=== PATIENT | male | born 1950 | race Caucasian/White ===

== ENCOUNTER 2021-02-10 17:25 | Outpatient (CLI) | payer OTHER ==
[2021-02-10 15:16] LABS: BASOPHILS % (AUTO) 0.8 %; EOSINOPHILS % (AUTO) 0.8 %; HCT - HEMATOCRIT 34.6 % (42.0-52.0); HGB - HEMOGLOBIN 10.3 g/dL (14.0-18.0); LYMPHOCYTES # (AUTO) 0.8 10^3/uL (1.5-3.5); LYMPHOCYTES % (AUTO) 16.1 %; MEAN CORPUSCULAR HEMOGLOBIN 29.3 pg (27.0-31.0); MEAN CORPUSCULAR HGB CONC 29.8 g/dL (32.0-36.0); MEAN CORPUSCULAR VOLUME 98.6 fL (80.0-94.0); MEAN PLATELET VOLUME 8.8 fL (7.4-11.4); MONOCYTES # (AUTO) 0.6 10^3/uL (0.0-1.0); MONOCYTES % (AUTO) 11.3 %; NEUTROPHILS # (AUTO) 3.5 10^3/uL (1.5-6.6); NEUTROPHILS % (AUTO) 70.8 %; PLT - PLATELET COUNT 408 10^3/uL (130-450); RED BLOOD COUNT 3.51 10^6/uL (4.70-6.10); RED CELL DISTRIBUTION WIDTH 15.6 % (12.0-15.0)
[2021-02-10 15:33] LABS: ALBUMIN/GLOBULIN RATIO 0.8 (1.0-2.2); BILIRUBIN,TOTAL 0.5 mg/dL (0.2-1.0); CALCIUM 9.3 mg/dL (8.5-10.3); CREATININE 0.7 mg/dL (0.6-1.2); POTASSIUM 4.2 mmol/L (3.5-5.0)
--- NOTE | 2021-02-10 18:42 | Ultrasound Report ---
PROCEDURE: Duplex Ext Veins Left INDICATIONS: BILAT LE EDEMA TECHNIQUE: Real-time imaging, as well as color and pulse Doppler interrogation, were performed of the lower extr emity deep veins from the inguinal ligament to the popliteal fossa. COMPARISON: None. FINDINGS: The deep veins are normally compressible, and free of intraluminal thrombus. Color and pu lse Doppler demonstrate normal phasic intraluminal flow. There is normal augmentation response to di stal compression maneuver. IMPRESSION: Negative duplex venous ultrasound for left lower extremity DVT. Reviewed by: Parveen Wilson MD on 02/10/2021 6:41 PM PDT Approved by: Parveen Wilson MD on 02/10/2021 6:41 PM PDT Station ID: [id number]
== END 2021-02-10 17:26 | disposition home or self-care (01) ==
LOC: DI 17:25 → LAB.S 17:25 → DI 17:26
PROVIDERS: ATTEND Emergency Medicine
DX: R60.0 Localized edema (principal)
CPT/HCPCS: 36415; 80053; 83880; 85025; 85379

== ENCOUNTER 2021-03-04 08:21 | Outpatient (CLI) | payer BC, OTHER ==
[2021-03-04 15:14] LABS: ABSOLUTE RETICS # AUTO 0.041 10^6/uL (0.020-0.110); BASOPHILS # (AUTO) 0.1 10^3/uL (0.0-0.1); BASOPHILS % (AUTO) 0.8 %; EOSINOPHILS % (AUTO) 0.5 %; HCT - HEMATOCRIT 33.9 % (42.0-52.0); HGB - HEMOGLOBIN 9.9 g/dL (14.0-18.0); LYMPHOCYTES # (AUTO) 0.8 10^3/uL (1.5-3.5); LYMPHOCYTES % (AUTO) 12.6 %; MEAN CORPUSCULAR HEMOGLOBIN 28.7 pg (27.0-31.0); MEAN CORPUSCULAR HGB CONC 29.2 g/dL (32.0-36.0); MEAN CORPUSCULAR VOLUME 98.3 fL (80.0-94.0); MEAN PLATELET VOLUME 8.7 fL (7.4-11.4); MONOCYTES # (AUTO) 0.6 10^3/uL (0.0-1.0); MONOCYTES % (AUTO) 9.8 %; NEUTROPHILS # (AUTO) 4.6 10^3/uL (1.5-6.6); NEUTROPHILS % (AUTO) 76.1 %; PLT - PLATELET COUNT 479 10^3/uL (130-450); RED BLOOD COUNT 3.45 10^6/uL (4.70-6.10); RED CELL DISTRIBUTION WIDTH 15.6 % (12.0-15.0); RETICULOCYTE COUNT % (AUTO) 1.19 % (0.5-2.3); WHITE BLOOD COUNT 6.1 x10^3/uL (4.8-10.8)
[2021-03-04 15:46] LABS: ALBUMIN 3.1 g/dL (3.2-5.5); ALBUMIN/GLOBULIN RATIO 0.7 (1.0-2.2); BILIRUBIN,TOTAL 0.9 mg/dL (0.2-1.0); CALCIUM 9.6 mg/dL (8.5-10.3); CREATININE 0.7 mg/dL (0.6-1.2); POTASSIUM 4.1 mmol/L (3.5-5.0); TOTAL PROTEIN 7.6 g/dL (6.7-8.2)
[2021-03-04 15:54] LABS: THYROID STIMULATING HORMONE 1.69 uIU/mL (0.34-5.60)
[2021-03-04 16:01] LABS: FERRITIN 1129.5 ng/mL (23.9-336.2)
== END 2021-03-04 08:22 | disposition home or self-care (01) ==
LOC: LAB.S 08:21
PROVIDERS: ATTEND Family Medicine
DX: D64.9 Anemia, unspecified (principal); R35.1 Nocturia; M89.8X5 Other specified disorders of bone, thigh; R74.8 Abnormal levels of other serum enzymes; D72.810 Lymphocytopenia
CPT/HCPCS: 36415; 80053; 82607; 82728; 82746; 82977; 83540; 84153; 84443; 84466; 85025; 85045

== ENCOUNTER 2021-03-06 15:48 | Outpatient (CLI) | payer BC ==
[2021-03-06 19:53] LABS: BASOPHILS % (AUTO) 0.7 %; EOSINOPHILS # (AUTO) 0.1 10^3/uL (0.0-0.7); EOSINOPHILS % (AUTO) 0.8 %; HCT - HEMATOCRIT 34.6 % (42.0-52.0); HGB - HEMOGLOBIN 10.2 g/dL (14.0-18.0); LYMPHOCYTES # (AUTO) 0.8 10^3/uL (1.5-3.5); LYMPHOCYTES % (AUTO) 13.2 %; MEAN CORPUSCULAR HEMOGLOBIN 28.7 pg (27.0-31.0); MEAN CORPUSCULAR HGB CONC 29.5 g/dL (32.0-36.0); MEAN CORPUSCULAR VOLUME 97.2 fL (80.0-94.0); MEAN PLATELET VOLUME 8.6 fL (7.4-11.4); MONOCYTES # (AUTO) 0.4 10^3/uL (0.0-1.0); MONOCYTES % (AUTO) 7.2 %; NEUTROPHILS # (AUTO) 4.7 10^3/uL (1.5-6.6); NEUTROPHILS % (AUTO) 77.6 %; PLT - PLATELET COUNT 539 10^3/uL (130-450); RED BLOOD COUNT 3.56 10^6/uL (4.70-6.10); RED CELL DISTRIBUTION WIDTH 15.5 % (12.0-15.0); WHITE BLOOD COUNT 6.1 x10^3/uL (4.8-10.8)
[2021-03-06 20:12] LABS: ALBUMIN/GLOBULIN RATIO 0.7 (1.0-2.2); BILIRUBIN,TOTAL 0.3 mg/dL (0.2-1.0); CALCIUM 9.4 mg/dL (8.5-10.3); CREATININE 0.7 mg/dL (0.6-1.2); POTASSIUM 4.3 mmol/L (3.5-5.0); TOTAL PROTEIN 7.5 g/dL (6.7-8.2)
== END 2021-03-06 15:49 | disposition home or self-care (01) ==
LOC: LAB.S 15:48
PROVIDERS: ATTEND Internal Medicine
DX: C61 Malignant neoplasm of prostate (principal)
CPT/HCPCS: 36415; 80053; 84153; 84403; 85025

== ENCOUNTER 2021-03-14 10:30 | Outpatient (CLI) | payer BC ==
[2021-03-14] MEDS ORDERED: IOVERSOL 320 100 ML VIAL IVP ONE (11:04)
[2021-03-14] MEDS ORDERED: IOVERSOL 320 50 ML VIAL ONE (11:04)
[2021-03-14] MEDS: IOVERSOL 320 100 ML VIAL IVP ONE (16:05)
[2021-03-14] MEDS: IOVERSOL 320 50 ML VIAL PO ONE (16:05)
--- NOTE | 2021-03-14 16:32 | CT Report ---
PROCEDURE: Abdomen/Pelvis W INDICATIONS: PROSTATE CA CONTRAST: IV CONTRAST: Optiray 320 ml: 100 PO CONTRAST: Optiray 320 ml50 TECHNIQUE: After the administration of contrast, 5 mm thick sections acquired from the diaphragms to the sym physis. 5 mm thick coronal and sagittal reformats were acquired. For radiation dose reduction, the following was used: automated exposure control, adjustment of mA and/or kV according to patient size . COMPARISON: None. FINDINGS: Image quality: Excellent. ABDOMEN: Lung bases: Lung bases are clear. Heart size is normal. Solid organs: Liver and spleen are normal in size and enhancement. Multiple subcentimeter hypodensi ties in the liver are indeterminate but likely cysts. Gallbladder is normal Biliary system is non di lated. Pancreas enhances normally. No adrenal nodules. Kidneys demonstrate normal size and enhance ment, without hydronephrosis. Peritoneum and bowel: Bowel loops demonstrate normal wall thickness and caliber. No free fluid or a ir. Nodes and vessels: No retroperitoneal or mesenteric adenopathy by size criteria. The aorta has ather osclerotic calcifications with no aneurysmal dilatation. The aorta is tortuous. Miscellaneous: No ventral hernias. PELVIS: Genitourinary: Bladder wall thickness is normal. Miscellaneous: No inguinal hernias or adenopathy. Bones: There is subtle sclerosis of the posterior aspect of the L1 vertebral body. The S1 vertebral b tona also has a mixed lytic/sclerotic appearance. There is sclerosis of the inferior aspect of the lef t iliac wing including the acetabulum, superior and inferior ramus, and symphysis pubis. Similar scle rosis of the right inferior ramus is also seen. IMPRESSION: 1. Osseous sclerotic disease consistent with prostate cancer metastasis as above. 2. Hepatic hypodensities are probably cysts but are indeterminate. 3. No other evidence of metastatic disease. Reviewed by: Chad Velázquez on 03/14/2021 4:30 PM PDT Approved by: Chad Velázquez on 03/14/2021 4:30 PM PDT Station ID: [id number]
--- NOTE | 2021-03-14 19:28 | CT Report ---
PROCEDURE: CT chest with contrast INDICATIONS: 70-year-old male with prostate cancer CONTRAST: IV CONTRAST: Optiray 320 ml: 100 PO CONTRAST: Optiray 320 ml50 TECHNIQUE: After the administration of intravenous contrast, 1 mm axial images were acquired from the pulmonary apices through the posterior costophrenic angles. Axial 5 mm soft tissue kernel reconstructions were performed as well as 8 mm axial MIP and coronal and sagittal 5 mm reformations. For radiation dose reduction, the following was used: automated exposure control, adjustment of mA and/or kV according to patient size. COMPARISON: None. FINDINGS: Image quality: Excellent. Lungs and pleura: No acute air space opacities. No pleural effusions or pneumothorax. Central and peripheral airways are patent and normal in caliber. Mediastinum: Heart size is normal. No pericardial effusion. No mediastinal or hilar adenopathy by size criteria. Thoracic aorta and central pulmonary arteries are normal in size. Esophagus is karen l in caliber. No hiatal hernia. Small 1.2 cm left thyroid nodule Bones and chest wall: There is increased sclerosis involving the T10 superior posterior corner of the vertebral body and endplate. Remainder the osseous structures are unremarkable. Abdomen: Visualized upper abdominal solid organs appear normal. Upper abdominal bowel loops are nor mal in caliber. Hepatic cysts noted. IMPRESSION: 1. Osteoblastic T10 sclerotic focus, suspicious for prostatic metastasis. Correlate with bone scan. 2. Small 1.2 cm left thyroid nodule 3. Hepatic hypodensities, likely simple cysts. Reviewed by: Syed Bartholomew MD on 03/14/2021 6:27 PM AKYSABEL Approved by: Syed Bartholomew MD on 03/14/2021 6:27 PM AKDT Station ID: [id number]
== END 2021-03-14 10:31 | disposition home or self-care (01) ==
LOC: DI 10:30
PROVIDERS: ATTEND Internal Medicine
DX: C61 Malignant neoplasm of prostate (principal); C79.51 Secondary malignant neoplasm of bone; E04.1 Nontoxic single thyroid nodule; K76.9 Liver disease, unspecified
CPT/HCPCS: 71260; 74177; Q9967

== ENCOUNTER 2021-03-26 08:45 | Outpatient (CLI) | payer BC ==
[2021-03-26 09:14] LABS: ABSOLUTE RETICS # AUTO 0.072 10^6/uL (0.020-0.110); BASOPHILS # (AUTO) 0.1 10^3/uL (0.0-0.1); BASOPHILS % (AUTO) 1.4 %; EOSINOPHILS # (AUTO) 0.1 10^3/uL (0.0-0.7); EOSINOPHILS % (AUTO) 2.2 %; HCT - HEMATOCRIT 40.8 % (42.0-52.0); HGB - HEMOGLOBIN 12.2 g/dL (14.0-18.0); LYMPHOCYTES # (AUTO) 0.9 10^3/uL (1.5-3.5); LYMPHOCYTES % (AUTO) 23.2 %; MEAN CORPUSCULAR HEMOGLOBIN 29.3 pg (27.0-31.0); MEAN CORPUSCULAR HGB CONC 29.9 g/dL (32.0-36.0); MEAN CORPUSCULAR VOLUME 98.1 fL (80.0-94.0); MEAN PLATELET VOLUME 8.8 fL (7.4-11.4); MONOCYTES # (AUTO) 0.3 10^3/uL (0.0-1.0); NEUTROPHILS # (AUTO) 2.4 10^3/uL (1.5-6.6); NEUTROPHILS % (AUTO) 64.2 %; PLT - PLATELET COUNT 280 10^3/uL (130-450); RED BLOOD COUNT 4.16 10^6/uL (4.70-6.10); RETICULOCYTE COUNT % (AUTO) 1.73 % (0.5-2.3); WHITE BLOOD COUNT 3.7 x10^3/uL (4.8-10.8)
[2021-03-26 09:34] LABS: BILIRUBIN,TOTAL 0.7 mg/dL (0.2-1.0); CALCIUM 10.1 mg/dL (8.5-10.3); CREATININE 0.7 mg/dL (0.6-1.2); POTASSIUM 4.6 mmol/L (3.5-5.0); TOTAL PROTEIN 7.9 g/dL (6.7-8.2)
--- NOTE | 2021-03-26 17:40 | Nuclear Medicine Report ---
PROCEDURE: Bone Whole Body INDICATIONS: PROSTATE CA RADIOPHARMACEUTICAL: 26.3 mCi Tc-99m MDP IV. TECHNIQUE: Delayed whole-body scintigrams were obtained approximately 3-4 hours after intravenous injection of r adiotracer. Anterior and posterior views were acquired from vertex to feet. Additional left and rig ht oblique views of the skull and cervical spine were obtained. COMPARISON: None available. FINDINGS: There are foci of abnormal uptake involving the T6 and T10 vertebral bodies, sacrum, left iliac bone, left ischium and pubis, right anterior superior iliac spine, right ischium and pelvis, co nsistent with osseous metastases. Foci of mildly increased uptake in the anterior aspect of the left third rib and the posterior aspect of the left 12th rib are indeterminate. Foci of low level increased uptake in the lower thoracic spi ne and lumbar spine could represent metastatic disease although degenerative changes could have a sim ilar appearance. If clinically indicated, MRI may be helpful. IMPRESSION: 1. Multiple foci of osseous metastases involving thoracic spine, sacrum, and bony pelvis. 2. Foci of low level increased uptake in the lower thoracic spine and lumbar spine could represent me tastatic disease although degenerative changes could have a similar appearance. If clinically indicat ed, MRI with and without contrast may be helpful. Reviewed by: Gisselle Lopez MD on 03/26/2021 5:38 PM PST Approved by: Gisselle Lopez MD on 03/26/2021 5:38 PM PST Station ID: [id number]
== END 2021-03-26 08:46 | disposition home or self-care (01) ==
LOC: DI 08:45
PROVIDERS: ATTEND Internal Medicine
DX: C61 Malignant neoplasm of prostate (principal); C79.51 Secondary malignant neoplasm of bone; R35.1 Nocturia; M89.8X5 Other specified disorders of bone, thigh; D64.9 Anemia, unspecified; D72.810 Lymphocytopenia; R74.8 Abnormal levels of other serum enzymes
CPT/HCPCS: 36415; 78306; 80053; 82728; 82977; 84153; 84403; 85025; 85045

== ENCOUNTER 2021-06-11 08:16 | Outpatient (CLI) | payer BC ==
[2021-06-11 14:56] LABS: BASOPHILS % (AUTO) 0.8 %; EOSINOPHILS # (AUTO) 0.1 10^3/uL (0.0-0.7); EOSINOPHILS % (AUTO) 2.8 %; HCT - HEMATOCRIT 43.7 % (42.0-52.0); HGB - HEMOGLOBIN 14.1 g/dL (14.0-18.0); LYMPHOCYTES # (AUTO) 0.4 10^3/uL (1.5-3.5); LYMPHOCYTES % (AUTO) 17.1 %; MEAN CORPUSCULAR HEMOGLOBIN 31.8 pg (27.0-31.0); MEAN CORPUSCULAR HGB CONC 32.3 g/dL (32.0-36.0); MEAN CORPUSCULAR VOLUME 98.6 fL (80.0-94.0); MEAN PLATELET VOLUME 9.6 fL (7.4-11.4); MONOCYTES # (AUTO) 0.3 10^3/uL (0.0-1.0); MONOCYTES % (AUTO) 10.7 %; NEUTROPHILS # (AUTO) 1.7 10^3/uL (1.5-6.6); NEUTROPHILS % (AUTO) 68.6 %; PLT - PLATELET COUNT 219 10^3/uL (130-450); RED BLOOD COUNT 4.43 10^6/uL (4.70-6.10); RED CELL DISTRIBUTION WIDTH 14.6 % (12.0-15.0); WHITE BLOOD COUNT 2.5 x10^3/uL (4.8-10.8)
[2021-06-11 15:20] LABS: ALBUMIN 3.8 g/dL (3.2-5.5); ALBUMIN/GLOBULIN RATIO 1.2 (1.0-2.2); BILIRUBIN,TOTAL 0.6 mg/dL (0.2-1.0); CALCIUM 9.6 mg/dL (8.5-10.3); CREATININE 0.7 mg/dL (0.6-1.2); POTASSIUM 4.2 mmol/L (3.5-5.0); TOTAL PROTEIN 7.1 g/dL (6.7-8.2)
== END 2021-06-11 08:17 | disposition home or self-care (01) ==
LOC: LAB.S 08:16
PROVIDERS: ATTEND Internal Medicine
DX: C61 Malignant neoplasm of prostate (principal)
CPT/HCPCS: 36415; 80053; 84153; 85025

== ENCOUNTER 2022-03-25 07:51 | Outpatient (CLI) | payer BC ==
[2022-03-25 08:22] LABS: BASOPHILS % (AUTO) 1.4 %; EOSINOPHILS # (AUTO) 0.1 10^3/uL (0.0-0.7); EOSINOPHILS % (AUTO) 2.3 %; HCT - HEMATOCRIT 43.1 % (42.0-52.0); HGB - HEMOGLOBIN 14.5 g/dL (14.0-18.0); LYMPHOCYTES # (AUTO) 0.5 10^3/uL (1.5-3.5); LYMPHOCYTES % (AUTO) 24.9 %; MEAN CORPUSCULAR HEMOGLOBIN 34.1 pg (27.0-31.0); MEAN CORPUSCULAR HGB CONC 33.6 g/dL (32.0-36.0); MEAN CORPUSCULAR VOLUME 101.4 fL (80.0-94.0); MEAN PLATELET VOLUME 8.9 fL (7.4-11.4); MONOCYTES # (AUTO) 0.2 10^3/uL (0.0-1.0); MONOCYTES % (AUTO) 9.9 %; NEUTROPHILS # (AUTO) 1.3 10^3/uL (1.5-6.6); PLT - PLATELET COUNT 204 10^3/uL (130-450); RED BLOOD COUNT 4.25 10^6/uL (4.70-6.10); WHITE BLOOD COUNT 2.1 x10^3/uL (4.8-10.8)
[2022-03-25 08:36] LABS: PLATELET ESTIMATE, MANUAL NORMAL (130-450,000) (NORMAL); PLATELET MORPHOLOGY NORMAL APPEARANCE (NORMAL); RBC MORPHOLOGY (MULTIPLE) NORMAL APPEARANCE (NORMAL); SLIDE REVIEW? Indicated
[2022-03-25 08:45] LABS: ALBUMIN/GLOBULIN RATIO 1.4 (1.0-2.2); ALKALINE PHOSPHATASE 58 IU/L (42-121); ALT ALANINE AMINOTRANSFERASE 15 IU/L (10-60); AST ASPARTATE AMINOTRANSFERASE 18 IU/L (10-42); BILIRUBIN,TOTAL 0.8 mg/dL (0.2-1.0); BUN - BLOOD UREA NITROGEN 17 mg/dL (6-20); CALCIUM 9.8 mg/dL (8.5-10.3); CARBON DIOXIDE - CO2 28 mmol/L (21-32); CHLORIDE 101 mmol/L (101-111); CHOL/HDL RATIO 3.1 (<5.0); CHOLESTEROL 194 mg/dL; CREATININE 0.8 mg/dL (0.6-1.2); GFR - MDRD 96 (>89); GLUCOSE 103 mg/dL (70-100); HDL CHOLESTEROL 63 mg/dL; POTASSIUM 4.1 mmol/L (3.5-5.0); SODIUM 137 mmol/L (135-145); TOTAL PROTEIN 6.9 g/dL (6.7-8.2); TRIGLYCERIDES 35 mg/dL
[2022-03-25 09:20] LABS: ESTIMATED AVERAGE GLUCOSE 117 mg/dL (70-100); HEMOGLOBIN A1c% 5.7 % (4.27-6.07)
== END 2022-03-25 07:52 | disposition home or self-care (01) ==
LOC: LAB 07:51
PROVIDERS: ATTEND Student in an Organized Health Care Education/Training Program
DX: Z00.00 Encounter for general adult medical examination without abnormal findings (principal); C61 Malignant neoplasm of prostate
CPT/HCPCS: 36415; 80053; 80061; 83036; 83721; 84153; 85025

== ENCOUNTER 2022-06-22 07:35 | Outpatient (CLI) | payer BC ==
[2022-06-22 14:15] LABS: BASOPHILS % (AUTO) 0.9 %; EOSINOPHILS # (AUTO) 0.1 10^3/uL (0.0-0.7); EOSINOPHILS % (AUTO) 2.3 %; HCT - HEMATOCRIT 43.9 % (42.0-52.0); HGB - HEMOGLOBIN 13.9 g/dL (14.0-18.0); LYMPHOCYTES # (AUTO) 0.6 10^3/uL (1.5-3.5); LYMPHOCYTES % (AUTO) 14.3 %; MEAN CORPUSCULAR HEMOGLOBIN 32.9 pg (27.0-31.0); MEAN CORPUSCULAR HGB CONC 31.7 g/dL (32.0-36.0); MEAN CORPUSCULAR VOLUME 103.8 fL (80.0-94.0); MEAN PLATELET VOLUME 9.5 fL (7.4-11.4); MONOCYTES # (AUTO) 0.4 10^3/uL (0.0-1.0); MONOCYTES % (AUTO) 8.2 %; NEUTROPHILS # (AUTO) 3.2 10^3/uL (1.5-6.6); NEUTROPHILS % (AUTO) 74.1 %; PLT - PLATELET COUNT 229 10^3/uL (130-450); RED BLOOD COUNT 4.23 10^6/uL (4.70-6.10); RED CELL DISTRIBUTION WIDTH 12.2 % (12.0-15.0); WHITE BLOOD COUNT 4.3 x10^3/uL (4.8-10.8)
[2022-06-23 17:54] LABS: ALBUMIN 3.9 g/dL (3.2-5.5); ALBUMIN/GLOBULIN RATIO 1.4 (1.0-2.2); CALCIUM 9.6 mg/dL (8.5-10.3); CREATININE 0.7 mg/dL (0.6-1.2); POTASSIUM 4.5 mmol/L (3.5-5.0); TOTAL PROTEIN 6.7 g/dL (6.7-8.2)
== END 2022-06-22 07:36 | disposition home or self-care (01) ==
LOC: LAB.S 07:35
PROVIDERS: ATTEND Internal Medicine
DX: C61 Malignant neoplasm of prostate (principal)
CPT/HCPCS: 36415; 80053; 84153; 85025

== ENCOUNTER 2022-09-14 07:00 | Outpatient (CLI) | payer BC ==
--- NOTE | 2022-09-14 13:00 | XRAY Report ---
PROCEDURE: Chest 2 View X-Ray INDICATIONS: DYSPNEA TECHNIQUE: 2 views of the chest were acquired. COMPARISON: CT chest 03/14/2021 FINDINGS: Surgical changes and devices: None. Lungs and pleura: No pleural effusions or pneumothorax. Lungs are clear. Mediastinum: Mediastinal contours appear normal. Heart size is normal. Bones and chest wall: No suspicious bony lesions. Overlying soft tissues appear unremarkable. IMPRESSION: No acute pulmonary process. Reviewed by: Maureen Platt MD on 09/14/2022 12:59 PM PDT Approved by: Maureen Platt MD on 09/14/2022 12:59 PM PDT Station ID: [id number]
== END 2022-09-14 23:59 | disposition home or self-care (01) ==
LOC: DI.S 07:00
PROVIDERS: ATTEND Emergency Medicine
DX: R06.00 Dyspnea, unspecified (principal)

== ENCOUNTER 2022-09-14 08:00 | Outpatient (CLI) | payer BC ==
[2022-09-14 14:56] LABS: BILIRUBIN,TOTAL 1.1 mg/dL (0.2-1.0)
== END 2022-09-14 23:59 | disposition home or self-care (01) ==
LOC: LAB 08:00
PROVIDERS: ATTEND Internal Medicine
DX: C61 Malignant neoplasm of prostate (principal)
CPT/HCPCS: 36415; 82040; 82247; 84153; 84155; 84450; 84460

== ENCOUNTER 2022-09-14 14:11 | Emergency (ER) | payer BC ==
[2022-09-14 14:43] LABS: BASOPHILS % (AUTO) 0.8 %; EOSINOPHILS % (AUTO) 0.8 %; HCT - HEMATOCRIT 42.8 % (42.0-52.0); HGB - HEMOGLOBIN 14.5 g/dL (14.0-18.0); LYMPHOCYTES # (AUTO) 0.7 10^3/uL (1.5-3.5); LYMPHOCYTES % (AUTO) 27.3 %; MEAN CORPUSCULAR HEMOGLOBIN 33.3 pg (27.0-31.0); MEAN CORPUSCULAR HGB CONC 33.9 g/dL (32.0-36.0); MEAN CORPUSCULAR VOLUME 98.4 fL (80.0-94.0); MONOCYTES # (AUTO) 0.3 10^3/uL (0.0-1.0); MONOCYTES % (AUTO) 9.6 %; NEUTROPHILS # (AUTO) 1.6 10^3/uL (1.5-6.6); NEUTROPHILS % (AUTO) 61.1 %; PLT - PLATELET COUNT 239 10^3/uL (130-450); RED BLOOD COUNT 4.35 10^6/uL (4.70-6.10); WHITE BLOOD COUNT 2.6 x10^3/uL (4.8-10.8)
[2022-09-14 14:53] LABS: CALCIUM 9.9 mg/dL (8.5-10.3); CREATININE 0.8 mg/dL (0.6-1.2); POTASSIUM 3.8 mmol/L (3.5-5.0)
[2022-09-14 15:07] LABS: SLIDE REVIEW? Indicated
--- NOTE | 2022-09-14 15:14 | ED Physician Documentation ---
PD HPI DYSPNEA - Stated complaint Stated Complaint: SOA - Chief complaint Chief Complaint: Cardiac - History obtained from History obtained from: Patient - Additional information Additional information: 72-year-old gentleman undergoing treatment with Xtandi, Zometa and Lupron for metastatic prostate cancer to bone developed shortness of breath last night. It is not associate with cough or chest pain. He was seen in the clinic and referred here for concern for PE since his EKG and chest x-ray were unremarkable. He denies pedal edema. PD PAST MEDICAL HISTORY - Allergies Allergies/Adverse Reactions: Allergies Allergy/AdvReac Type Severity Reaction Status Date / Time No Known Drug Allergies Allergy Verified 09/14/22 14:51 PD ED PE NORMAL - Vitals Vital signs reviewed: Yes - General General: Alert and oriented X 3, No acute distress - Cardiac Cardiac: RRR, No murmur - Respiratory Respiratory: No respiratory distress, Clear bilaterally - Abdomen Abdomen: Non tender, Non distended - Back Back: No CVA TTP, No spinal TTP - Derm Derm: Normal color, Warm and dry - Extremities Extremities: No edema, No calf tenderness / cord - Neuro Neuro: Alert and oriented X 3, Normal speech Results - Vitals Vitals: Vital Signs - 24 hr 09/14/22 09/14/22 14:48 16:14 Temperature 36.1 C L Heart Rate 71 77 Respiratory 28 H 13 Rate Blood Pressure 136/86 H 150/87 H O2 Saturation 98 97 Oxygen O2 Source Room air - EKG (time done) 1453. EKG releavant findings:: EKG personally interpreted by author of this note. Relevant findings are: Rate: Rate (enter#) (67) Rhythm: NSR Intervals: RBBB QRS: Normal Ischemia: Normal ST segments - Labs Labs: Laboratory Tests 09/14/22 09/14/22 09/14/22 14:31 14:31 16:42 WBC 2.6 L RBC 4.35 L Hgb 14.5 Hct 42.8 MCV 98.4 H MCH 33.3 H MCHC 33.9 RDW 12.0 Plt Count 239 MPV 9.0 Neut # (Auto) 1.6 Lymph # (Auto) 0.7 L [place] # (Auto) 0.3 Eos # (Auto) 0.0 Baso # (Auto) 0.0 Absolute Nucleated RBC 0.00 Nucleated RBC % 0.0 Manual Slide Review Indicated WBC Morphology NORMAL APPEARANCE Platelet Estimate NORMAL (130-450,000) Platelet Morphology NORMAL APPEARANCE RBC Morph Micro Appear NORMAL APPEARANCE Sodium 142 Potassium 3.8 Chloride 106 Carbon Dioxide 26 Anion Gap 10.0 BUN 12 Creatinine 0.8 Estimated GFR (MDRD) 96 Glucose 97 Calcium 9.9 Troponin I High Sens 4.0 PD Medical Decision Making - ED course ED course: 72-year-old gentleman with metastatic prostate cancer presents for pulmonary embolism work-up given shortness of breath with clear lungs, normal chest x-ray and EKG in the clinic. There is really no chest pain with this. CT pulmonary angiogram was negative. Other than sclerotic foci in his spine, and he has known metastatic prostate cancer. Departure - Departure Disposition: 01 Home, Self Care Clinical Impression: Prostate cancer metastatic to bone Dyspnea Qualifiers: Dyspnea type: shortness of breath Qualified Code(s): R06.02 - Shortness of breath; R06.00 - Dyspnea, unspecified; R06.01 - Orthopnea Condition: Good Record reviewed to determine appropriate education?: Yes Instructions: ED Dyspnea Shortness of Breath Comments: The cause of your shortness of breath is unclear. We have ruled out heart attack and blood clot. You are not significantly anemic. Follow-up with your primary care physician and oncologist for further evaluation and treatment. Return if new or worsening symptoms develop.
--- OUTSIDE RECORDS SUMMARY | 2022-09-14 15:20 | EXTERNAL MEDICAL SUMMARY RPT | Continuity of Care Document ---
:1950 Author Organization [facility] Address [address] [place] [address] Phone Care Team Providers Name Role Phone Unavailable Unavailable Unavailable Parker Roca Md Unavailable Unavailable Allergies No information. Encounters No information. Functional Status No information. Immunizations No information. Medications date description facility 2022-09-14 00:00 [facility]alutamide [facility] 2022-09-14 00:00 enzalutamide [facility] 2022-09-14 00:00 enzalutamide [facility] 2022-09-14 00:00 azelastine [facility] 2022-09-14 00:00 enzalutamide [facility] 2022-09-14 00:00 gabapentin [facility] 2022-09-14 00:00 azelastine [facility] 2022-09-14 00:00 gabapentin [facility] 2022-09-14 00:00 azelastine [facility] 2022-09-14 00:00 gabapentin [facility] 2022-09-14 00:00 azelastine [facility] 2022-09-14 00:00 gabapentin [facility] Problems date description facility 2022-09-14 00:00 Dyspnea [facility] 2022-09-14 00:00 Other dyspnea and respiratory [facility] 2022-09-14 00:00 Dyspnea, unspecified [facility] Procedures date description facility 2022-09-14 00:00 Visit Code Hold [facility] Results/Labs No information. Social History date description facility 2022-09-14 00:00 Former smoker [facility] Vital Signs date measurement value units 2022-09-14 00:00 BMI 28.01 kg/m2 2022-09-14 00:00 BP_diastolic 88 mmHg 2022-09-14 00:00 BP_systolic 135 mmHg 2022-09-14 00:00 heart_rate 73 /min 2022-09-14 00:00 height_metric 182.88 cm 2022-09-14 00:00 height_standard 72 in 2022-09-14 00:00 respiration_rate 29 /min 2022-09-14 00:00 temperature_metric 36.39 C 2022-09-14 00:00 temperature_standard 97.5 F 2022-09-14 00:00 weight_metric 93.35 kg 2022-09-14 00:00 weight_standard 205.8 lb
[2022-09-14] MEDS ORDERED: iohexoL-300 100 ML VIAL ONE (15:22)
[2022-09-14 15:40] LABS: PLATELET ESTIMATE, MANUAL NORMAL (130-450,000) (NORMAL); PLATELET MORPHOLOGY NORMAL APPEARANCE (NORMAL); RBC MORPHOLOGY (MULTIPLE) NORMAL APPEARANCE (NORMAL); WBC MORPHOLOGY (MULTIPLE) NORMAL APPEARANCE (NORMAL)
[2022-09-14] MEDS: iohexoL-300 100 ML VIAL IVP ONE (15:51)
--- NOTE | 2022-09-14 16:22 | CT Report ---
PROCEDURE: ANGIO CHEST W/WO INDICATIONS: PE protocol for dyspnea CONTRAST: 80mL Omni 300 TECHNIQUE: After the administration of intravenous contrast, 2 mm axial images were acquired from the pulmonary apices to the posterior costophrenic angles during the arterial phase. In addition, 1 mm lung kernel and 5 mm soft tissue kernel reconstructions were performed. 3-dimensional coronal oblique maximum int ensity projection (MIP) reformats, 8 mm axial MIP, and 5 mm coronal and sagittal MPR reformats were t hen performed through the thorax. For radiation dose reduction, the following was used: automated exp osure control, adjustment of mA and/or kV according to patient size. COMPARISON: CT chest with, 03/14/2021 FINDINGS: Image quality: Suboptimal opacification of central pulmonary arteries. Large vessels: No filling defects within the opacified pulmonary arteries, accounting for motion and contrast timing. No evidence of acute aortic syndrome or aortic aneurysm. Lungs and pleura: No consolidation. Mild coronary calcification. No pleural effusions. No pneumothor ax. No suspicious pulmonary nodules which require follow up. Mediastinum: Heart size is normal. No pericardial effusions. No mediastinal adenopathy by size criter ia. Small hiatal hernia Chest wall and lower neck: There is a 0.6 mm nodule in the posterior left thyroid lobe. No axillary o r supraclavicular adenopathy by size. Gynecomastia. Bones: Subtle sclerotic appearance of T6 and T10. Scoliosis and degenerative changes noted in thoraci c and upper lumbar spine. Upper Abdomen: Multiple indeterminate hepatic hypodensities appear unchanged, most likely hepatic cys ts. IMPRESSION: 1. Suboptimal opacification of central pulmonary arteries. No definitive pulmonary embolism. 2. No acute cardiopulmonary process. 3. There are sclerotic foci of T6 and T10. Consider MRI with and without contrast for further evaluat ion. 4. Indeterminate hepatic hypodensities are probably cysts. 5. Gynecomastia. Reviewed by: Gisselle Lopez MD on 09/14/2022 4:20 PM PDT Approved by: Gisselle Lopez MD on 09/14/2022 4:20 PM PDT Station ID: [id number]
[2022-09-14 17:28] VITALS: BP 128/72
== END 2022-09-14 17:26 | disposition home or self-care (01) ==
LOC: ED 14:11
DX: R06.02 Shortness of breath (principal); C61 Malignant neoplasm of prostate; C79.51 Secondary malignant neoplasm of bone; R06.00 Dyspnea, unspecified
CPT/HCPCS: 36415; 71046; 71275; 80048; 82040; 82247; 84153; 84155; 84450; 84460; 84484; 85025; 93005; 99283; 99284; Q9967

== ENCOUNTER 2023-03-26 08:00 | Outpatient (CLI) | payer BC, MEDICARE ==
[2023-03-26 15:14] LABS: CHOL/HDL RATIO 2.8 (<5.0); CHOLESTEROL 178 mg/dL; HDL CHOLESTEROL 63 mg/dL; LDL CHOLESTEROL,CALCULATED 102 mg/dL; LDL/HDL RATIO 1.6 (<3.6); TRIGLYCERIDES 65 mg/dL (48-352); VLDL CHOLESTEROL 13 mg/dL
[2023-03-26 15:28] LABS: ESTIMATED AVERAGE GLUCOSE 114 mg/dL (70-100); HEMOGLOBIN A1c% 5.6 % (4.27-6.07)
== END 2023-03-26 23:59 | disposition home or self-care (01) ==
LOC: LAB.S 08:00
PROVIDERS: ATTEND Physician Assistant
DX: E78.00 Pure hypercholesterolemia, unspecified (principal); R73.03 Prediabetes
CPT/HCPCS: 36415; 80061; 83036; 83721

== ENCOUNTER 2024-01-12 09:32 | Outpatient (CLI) | payer MEDICARE ==
[2024-01-12 10:06] LABS: CHOL/HDL RATIO 2.6 (<5.0); CHOLESTEROL 177 mg/dL; HDL CHOLESTEROL 68 mg/dL; LDL CHOLESTEROL,CALCULATED 93 mg/dL; LDL/HDL RATIO 1.4 (<3.6); TRIGLYCERIDES 78 mg/dL; VLDL CHOLESTEROL 16 mg/dL
[2024-01-12 11:44] LABS: ESTIMATED AVERAGE GLUCOSE 111 mg/dL (70-100); HEMOGLOBIN A1c% 5.5 % (4.27-6.07)
== END 2024-01-12 09:33 | disposition home or self-care (01) ==
LOC: LAB 09:32
PROVIDERS: ATTEND Physician Assistant
DX: E78.00 Pure hypercholesterolemia, unspecified (principal); R73.03 Prediabetes
CPT/HCPCS: 36415; 80061; 83036; 83721